=== PATIENT | female | born 1970 | race Caucasian/White ===

== ENCOUNTER 2021-12-04 13:45 | Inpatient (IN) | payer BC ==
[~2021-12-04] VITALS: Ht 167.6 cm; Wt 63.1 kg
[2021-12-04 13:50] VITALS: BP 130/83
--- NOTE | 2021-12-04 14:03 | NUR ---
Patient being evaluated by MIA at bedside.
[2021-12-04] MEDS ORDERED: LIDOCAINE/EPI MPF 1%1:200000 30 ML VIAL INJ ONE (14:20)
--- NOTE | 2021-12-04 14:22 | NUR ---
SPOKE TO FELIX FROM POISON CONTROL STATES SUPPORTIVE CARE FOR PT. DR BELLAYM MADE AWARE.
[2021-12-04] MEDS ORDERED: ONDANSETRON 4 MG/2 ML VIAL IVP ONE (14:25)
--- NOTE | 2021-12-04 14:26 | NUR ---
MD BELLAMY AT BEDSIDE FOR SUTURE REPAIR
--- NOTE | 2021-12-04 14:46 | NUR ---
51YO FEMALE PT BIBA DUE TO SI AND ON 5150 HOLD. PER [facility], PT TOOK ABOUT PILLS OF RX CLONEZAPAM AND SLIT WRIST X2 WITH KITCHEN KNIFE, AFTER ARGUEMENT W/ . PT WAS FOUND UNRESPONSIVE ON SCENE. UPON ARRIVAL, PT UNAROUSABLE TO TOUCH OR VOICE. 2X 4IN FULL THICKNESS LAC NOTED ACROSS R WRIST, NO ACTIVE BLEEDING. ROOM STRIPPED OF POTENTIAL HARMFUL ITEMS. PT CHANGED INTO GOWN AND IN VIEW. BED AT LOWEST POSITION. RSPIRATIONS EVEN AND UNLABORED. ON DIRT CONTRACTOR. HX:ANXIETY, DEPRESSION ALLERGIES: PENICILLIN
[2021-12-04 14:51] LABS: BASOPHILS % (AUTO) 0.5 % (0.0-2.0); EOSINOPHILS # (AUTO) 0.2 K/uL (0-0.4); EOSINOPHILS % (AUTO) 1.9 % (0.0-4.0); HEMATOCRIT 39.1 % (36-48); HEMOGLOBIN 13.2 g/dL (12.0-16.0); LYMPHOCYTES # (AUTO) 2.1 K/uL (2.5-16.5); LYMPHOCYTES % (AUTO) 22.9 % (20.5-51.1); MEAN CORPUSCULAR HEMOGLOBIN 29 pg (27-31); MEAN CORPUSCULAR HGB CONC 34 g/dL (33-37); MEAN CORPUSCULAR VOLUME 86.3 fL (80-94); MONOCYTES # (AUTO) 0.5 K/uL (0.8-1.0); MONOCYTES % (AUTO) 5.6 % (1.7-9.3); NEUTROPHILS # (AUTO) 6.3 K/uL (1.8-7.7); NEUTROPHILS % (AUTO) 69.1 % (42.2-75.2); PLATELET COUNT (AUTO) 296 K/uL (140-450); RED BLOOD CELL COUNT(AUTO) 4.53 MIL/uL (4.20-5.40); RED CELL DISTRIBUTION WIDTH 13.6 % (11.6-13.7); WHITE BLOOD COUNT (AUTO) 9.1 K/uL (4.8-10.8)
--- NOTE | 2021-12-04 15:12 | NUR ---
pt swabbed for covid(lory/novel). walked to lab
[2021-12-04 15:20] LABS: ALBUMIN 3.5 g/dL (3.4-5.0); ANION GAP 14.3 (8-16); ASPARTATE AMINOTRANSFERASE 14 U/L (15-37); CARBON DIOXIDE 25.7 mmol/L (21-32); CHLORIDE 106 mmol/L (98-107); CREATININE 0.7 mg/dL (0.6-1.3); GFR ARICAN-AMERICAN 114 mL/min (>90); GLUCOSE 98 mg/dL (74-106); SODIUM SERUM 142 mmol/L (136-145); TOTAL BILIRUBIN 0.3 mg/dL (0.0-1.0); UREA NITROGEN, BLOOD 15 mg/dL (7-18)
[2021-12-04 15:21] LABS: SALICYLATE < 2.8 mg/dL (2.8-20.0)
[2021-12-04] MEDS ORDERED: LISD50CA PO (15:21)
[2021-12-04] MEDS ORDERED: CLON1TAB PO (15:21)
[2021-12-04] MEDS ORDERED: VORT20TA PO (15:21)
[2021-12-04 15:23] LABS: ACETAMINOPHEN < 0.5 ug/ml (10-30)
--- NOTE | 2021-12-04 15:25 | NUR ---
XRAY AT BEDSIDE
[2021-12-04] MEDS ORDERED: NACL 0.9% 1,000 ML IV ONE (15:55)
--- NOTE | 2021-12-04 15:56 | NUR ---
CALL RECEIVED FROM PT . UPDATED ON PT STATUS AND PENDING ADMIT
--- NOTE | 2021-12-04 15:59 | NUR ---
verbal consent received from chay VALERO - for tdap vacc
[2021-12-04 16:04] LABS: APPEARANCE,URINE CLEAR (CLEAR); BILIRUBIN,URINE NEGATIVE (NEGATIVE); BLOOD, URINE TRACE-I (NEGATIVE); LEUKOCYTE ESTERASE ,URINE NEGATIVE (NEGATIVE); NITRITE, URINE NEGATIVE (NEGATIVE); UGLUCOSE NEGATIVE (NEGATIVE)
[2021-12-04 16:14] LABS: COLOR,URINE STRAW (YELLOW)
--- NOTE | 2021-12-04 16:15 | NUR ---
PT SCREAMING, CRYING, YELLING "PLEASE TAKE ME TO THE LIGHT DAD" "LET ME GO WITH YOU" "I AM TIRED OF SUFFERING". PT UNRESPONSIVE TO PAINFUL STIMULI. ORDER FOR HALDOL 5MG IM MEDICATED PER WOOD MILL SUPERVISOR. NO CHANGE IN CONDITION.
[2021-12-04] MEDS ORDERED: HALOPERIDOL IM 5 MG/ML VIAL ONE (16:18)
[2021-12-04] MEDS ORDERED: HALOPERIDOL IM 5 MG/ML VIAL IVP ONE (16:20)
[2021-12-04 16:28] LABS: BARBITURATE, URINE NEGATIVE ng/ml (NEG <=200); BENZODIAZEPINE, URINE NEGATIVE ng/mL (NEG <=200); CANNABINOID, URINE NEGATIVE ng/mL (NEG <=50); COCAINE, URINE NEGATIVE ng/mL (NEG <=300); OPIATE, URINE NEGATIVE ng/mL (NEG <=2000); PHENCYCLIDINE SCREEN,URINE NEGATIVE ng/mL (NEG <=25)
[2021-12-04] MEDS ORDERED: HYDROmorphone 1 MG/ML AMP ONE (16:28)
[2021-12-04 16:29] LABS: RBC,URINE NONE SEEN /HPF (0-5); WBC,URINE NONE SEEN /HPF (0-5)
--- NOTE | 2021-12-04 16:30 | NUR ---
Pt noted in respiratory distress, tachypneic, labored, sats in the 50's, pt dusky, pt being bagged via bvm. Dr Guerra at bedside. RT called.
[2021-12-04] MEDS ORDERED: INTUBATION KIT MC ONE (16:31)
--- NOTE | 2021-12-04 16:32 | NUR ---
ADMITTING DX: 5150 SUICIDAL IDEATION; ALOC; PANTOGRAPH II ENGRAVER'S CALLED TO BEDSIDE; Narciso GAN RCP AND Zuleyka FOLEY RCP ATTENDING
[2021-12-04] MEDS ORDERED: PROPOFOL 200 MG/20 ML VIAL IV ONE (16:38)
[2021-12-04] MEDS ORDERED: PROPOFOL 1000 MG/100 ML PREMIX 100 ML IV ONE ×3 (16:39→18:41)
--- NOTE | 2021-12-04 16:40 | NUR ---
USING A GLIDESCOPE PATIENT SUCCESSFULLY INTUBATED BY DR. ZACHERY BELLAMY; VOACL CHORD VISUALIZED; ENDOTRACHEAL TUBE #7.5 SECURED AT 24 TEETH/GUM LINE WITH AN ANCHOR FAST; ETCO2 DETECTOR YELLOW; BILATERAL LUNG GUALLPA APEX TO MID AUSCULTATED BY ERMD; CHEST XRAY TO FOLLOW
--- NOTE | 2021-12-04 16:40 | NUR ---
Pt intubated. Tube size 7.5/23 at the teeth. RT bagging pt. Tolerating well. Sinus tach on monitor, IV inserted to left wrist, 18g. Second IV inserted to right hand 18g.
--- NOTE | 2021-12-04 16:40 | NUR ---
PATIENT ADMITTED PRIOR TO INTUBATION
--- NOTE | 2021-12-04 16:42 | NUR ---
MOVED TO ER BED 10
[2021-12-04] MEDS ORDERED: ETOMIDATE 20 MG/10 ML VIAL IVP ONE (16:45)
[2021-12-04] MEDS ORDERED: ROCURONIUM 50 MG/5 ML VIAL IV ONE (16:45)
--- NOTE | 2021-12-04 16:45 | NUR ---
OG inserted, gastric contents noted, f/c inserted using sterile techinique, urine output noted draining to gravity.
[2021-12-04 16:50] VITALS: BP 174/113
--- NOTE | 2021-12-04 16:58 | NUR ---
CHEXT XRAY FOR ENDOTRACHEAL TUBE PLACEMENT; PRELIMINARY 1.6cm ABOVE ESTEBAN
--- NOTE | 2021-12-04 17:16 | NUR ---
PROPOFOL INFUSING AT 10MCG/MIN VIA LEFT WRIST #18GUAGE, PT TOLERATING WELL.
--- NOTE | 2021-12-04 17:33 | NUR ---
TRANSFERRED TO RADIOLOGY FOR CT SCAN OF HEAD; OFF VENTILAOR PLACED ON SUPPLEMENTAL OXYGEN AT 15 LPM VIA E-TANK TO HME/INLINE SUCTION CATHETER/ENDOTRACHEAL TUBE; BAG DEPRESSION EVERY SIX SECONDS; TOLERATED PROCEDURE AND TRANSFERS WELL WITHOUT COMPLICATIONS NOTED; SATURATION 100% HR 80
--- NOTE | 2021-12-04 17:50 | NUR ---
BACK FROM CT
[2021-12-04] MEDS ORDERED: HYDROmorphone 1 MG/ML AMP IVP SCH ×2 (18:28→18:29)
--- NOTE | 2021-12-04 18:30 | NUR ---
Pt transferred to ICU via BED WITH SUDHIR DEJESUS.
--- NOTE | 2021-12-04 18:54 | NUR ---
PT TRANSPORTED TO ICU 6 IN CRITICAL CONDITION. BEDSIDE REPORT GIVEN TO JEROD PEGUERO.
--- NOTE | 2021-12-04 19:00 | NUR ---
RECEIVED REPORT PT. FROM SUDHIR WILDER GAME FARM SUPERVISOR. PT. ETT TO VENT A/C VC RATE 18, FIO2 30%, TV 450, PEEP 5 AND O2 SAT 100%. IV SITE: LEFT AC 18G INFUSING NS AT 150 ML/HR, LEFT WRIST 18G RUNNING PROPOFOL DRIP 50 MCG/KG/MIN AND RIGHT HAND 18G CAPPED AND FLUSHED. OGT FLUSHED AND CLAMPED ORDERED. PEREZ CATHETER PATENT AND URINE CLEAR YELLOW COLOR. ON BILATERAL SOFT WRIST RESTRAINT. SITE WITH NO S/S OF POOR CIRCULATION AND NO S/S OF INJURY. SKIN INTACT. SKIN SUTURE WITH DRESSING TO LEFT WRIST. PT. ABLE TO RESPOND TO TACTILE STIMULI OR BY CALLING HER NAME. PROVIDED SAFE AND QUIET ENVIRONMENT. NO S/S OF PAIN. WILL CONT. TO MONITOR
[2021-12-04 20:00] VITALS: BP 136/91
--- NOTE | 2021-12-04 20:05 | NUR ---
PT. CAME TO VISIT. PROVIDED UPDATE REGARDING PT. CONDITION. NO FURTHER QUESTIONS ASKED.
[2021-12-04] MEDS ORDERED: ZOLPIDEM 5 MG TAB PO PRN (20:50)
[2021-12-04] MEDS ORDERED: ALBUTEROL SULFATE/IPRATROPIU 3 ML SOL IH PRN (20:50)
[2021-12-04] MEDS ORDERED: guaiFENesin DM 200/20 MG-10 ML 10 ML UDC PO PRN (20:50)
[2021-12-04] MEDS ORDERED: ONDANSETRON 4 MG/2 ML VIAL IM/IVP PRN (20:50)
[2021-12-04] MEDS ORDERED: DOCUSATE SODIUM 100 MG GELCAP PO PRN (20:50)
[2021-12-04] MEDS: NACL 0.9% 1,000 ML IV SCH (20:50)
[2021-12-04] MEDS ORDERED: HYDROcodone/APAP 7.5/325 MG 1 TAB PO PRN (20:50)
[2021-12-04] MEDS ORDERED: POTASSIUM CHLORIDE 10 MEQ TABER PO PRN (20:50)
[2021-12-04 21:00] VITALS: BP 144/88
--- NOTE | 2021-12-04 21:10 | NUR ---
POISON CONTROL FELIX CALLED AND ASKED PT. CURRENT CONDITION AND LABS. STATED THAT THEY WILL JUST CALL FOR FOLLOW UP WITH PT. STATUS. WILL ENDORSE TO NEXT SHIFT.
[2021-12-04 21:25] LABS: CHOL/HDL RATIO 3.3 (1-4.5); FREE T4 (FREE THYROXINE) 0.93 ng/dL (0.76-1.46); MAGNESIUM 2.2 mg/dL (1.8-2.4); PHOSPHORUS 3.9 mg/dL (2.5-4.9); THYROID STIMULATING HORMONE 1.33 uIU/mL (0.34-3.74)
[2021-12-04 21:34] LABS: PROTHROMBIN TIME 10.1 secs (10.8-13.4)
[2021-12-04 22:00] VITALS: BP 135/84
[2021-12-04 23:00] VITALS: BP 117/75
[2021-12-04] MEDS: PROPOFOL 1000 MG/100 ML PREMIX 100 ML IV PRN (23:53)
[2021-12-05] VITALS (23 sets, daily range): BP systolic 106–134; BP diastolic 58–85
[2021-12-05] MEDS: ALBUTEROL SULFATE/IPRATROPIU 3 ML SOL IH SCH ×4 (00:14→20:14)
[2021-12-05] MEDS: PROPOFOL 1000 MG/100 ML PREMIX 100 ML IV PRN ×6 (03:32→21:18)
[2021-12-05] MEDS: NACL 0.9% 1,000 ML IV SCH ×3 (05:00→20:50)
[2021-12-05 05:21] LABS: BASOPHILS % (AUTO) 0.5 % (0.0-2.0); EOSINOPHILS # (AUTO) 0.3 K/uL (0-0.4); EOSINOPHILS % (AUTO) 3.1 % (0.0-4.0); HEMATOCRIT 31.4 % (36-48); HEMOGLOBIN 10.7 g/dL (12.0-16.0); LYMPHOCYTES # (AUTO) 1.8 K/uL (2.5-16.5); LYMPHOCYTES % (AUTO) 20.6 % (20.5-51.1); MEAN CORPUSCULAR HEMOGLOBIN 29 pg (27-31); MEAN CORPUSCULAR HGB CONC 34 g/dL (33-37); MONOCYTES # (AUTO) 0.7 K/uL (0.8-1.0); MONOCYTES % (AUTO) 7.5 % (1.7-9.3); NEUTROPHILS % (AUTO) 68.3 % (42.2-75.2); PLATELET COUNT (AUTO) 248 K/uL (140-450); RED BLOOD CELL COUNT(AUTO) 3.66 MIL/uL (4.20-5.40); RED CELL DISTRIBUTION WIDTH 13.6 % (11.6-13.7); WHITE BLOOD COUNT (AUTO) 8.8 K/uL (4.8-10.8)
[2021-12-05 06:04] LABS: ANION GAP 13.4 (8-16); CARBON DIOXIDE 25.2 mmol/L (21-32); CREATININE 0.7 mg/dL (0.6-1.3); POTASSIUM 3.6 mmol/L (3.5-5.1)
--- NOTE | 2021-12-05 07:18 | NUR ---
REPORT ENDORSED TO SUDHIR DOVER FOR CONTINUITY OF CARE.
--- NOTE | 2021-12-05 07:28 | NUR ---
RECEIVED REPORT FROM NUT PICKER. ETT TO VENT A/C VC RATE 18, FIO2 30%, TV 450, PEEP 5 AND O2 SAT 100%. PT. ABLE TO RESPOND TO TACTILE STIMULI OR BY CALLING HER NAME. NO S/S OF PAIN. IV SITE: LEFT AC 18G INFUSING NS AT 150 ML/HR, LEFT WRIST 18G RUNNING PROPOFOL DRIP 60 MCG/KG/MIN AND RIGHT HAND 18G CAPPED AND FLUSHED. OGT FLUSHED AND CLAMPED ORDERED, WILL START TUBE FEEDING THIS AM. PEREZ CATHETER PATENT AND URINE CLEAR YELLOW COLOR. ON BILATERAL SOFT WRIST RESTRAINT. SITE WITH NO S/S OF POOR CIRCULATION AND NO S/S OF INJURY. SKIN INTACT. SKIN SUTURE WITH DRESSING TO LEFT WRIST. WILL CONT. TO MONITOR
[2021-12-05] MEDS: PANTOPRAZOLE 40 MG INJ VIAL IVP SCH (08:29)
--- NOTE | 2021-12-05 08:30 | NUR ---
seen and examined by Dr Mendoza, plan to possibly start weaning tomorrow.
[2021-12-05] MEDS ORDERED: PANTOPRAZOLE 40 MG TABEC PO SCH (09:00)
--- NOTE | 2021-12-05 09:17 | NUR ---
DC PLANNIN YRS OLD WAS ADMITTED FROM HOME ON 515 HOLD WITH A DX OF BENZODIAZEPINE OVERDOSE. PATIENT HAS A HX OF ANXIETY, AND DEPRESSION. PE ER NURSE DOCUMENTATION PATIENT TOOK 22 PILLS OF CLONAZEPAM . PATIENT IN ICU INTUBATED SEDATED FIO2 30%. ON PROPOFOL DRIP. CXR SHOWED NO ACUTE CARDIOPULMONARY DISEASE. CT HEAD NEGATIVE. CONSULTED WITH GARRETT. RECEIVED A CALL FROM PIA THORNE SPOKE WITH OWEN , UPDATED HER PT'S CLINICAL. PER OWEN FOR INPT PSYCH FACILITY [facility] [phone], AND DC WASTE COLLECTION DRIVER KURTIS [phone]. MELIZA TO FOLLOW Addendum: 12/08/21 at 1155 by Khadijah Shaffer RN DC PLANNING: CALLED [facility]ITT[facility] THORNE [phone] SPOKE WITH OWEN HAIDER NOTIFIED HER THAT PATIENT NEEDS INPT PSYCH. OWEN STATED TO FAX IT TO ANY PSYCH FACILITY. [facility] AND CANDY ROLLER TO FOLLOW. Addendum: 12/08/21 at 1455 by Khadijah Shaffer RN DC PLANNING: PATIENT GOT ACCEPTED AT [facility] GOING TO UNIT [address] MAHONEY ARRANGED TRANSPORT WITH [facility] CUSTOM FRAME ASSEMBLER TIME 4PM. NOTIFIED NANNETTE CHING CM TO FOLLOW
--- NOTE | 2021-12-05 09:20 | NUR ---
at bedside, updated on plan of care
--- NOTE | 2021-12-05 10:16 | NUR ---
PATIENT HAS BEEN SCREENED AND CATEGORIZED HIGH NUTRITION RISK. PATIENT WILL BE SEEN WITHIN 1-2 DAYS OF ADMISSION. 12/05/2209/26/[address]
--- NOTE | 2021-12-05 11:00 | NUR ---
TURNED AND REPOSITIONED
[2021-12-05 13:38] LABS: BARBITURATE, URINE NEGATIVE ng/ml (NEG <=200); BENZODIAZEPINE, URINE POSITIVE ng/mL (NEG <=200); CANNABINOID, URINE POSITIVE ng/mL (NEG <=50); COCAINE, URINE NEGATIVE ng/mL (NEG <=300); OPIATE, URINE NEGATIVE ng/mL (NEG <=2000); PHENCYCLIDINE SCREEN,URINE NEGATIVE ng/mL (NEG <=25)
--- NOTE | 2021-12-05 15:03 | NUR ---
ALEXIS PLANNING PT CURRENTLY INTUBATED/SEDATED. SHAUNA OUTREACHED TO MARYLU OLSEN, SPOUSE, TO GATHER COLLATERAL INFORMATION. MARYLU REPORTS THAT PATIENT RESIDES IN A TWO STORY HOME WITH FAMILY AT THE ADDRESS LISTED. MARYLU IDENTIFIES HIMSELF EMERGENCY CONTACT. MARYLU REPORTS THAT PATIENT MEETS WITH PCP DR. RUCHI DOMINGO AT [facility], LAST VISIT; 2 MONTHS AGO. PATIENT IS REPORTED TO HAVE AN APPT NEXT WEEK. MARYLU REPORTS THAT PATIENT IS MEDICATION COMPLIANT AND DENIES BARRIERS IN ACQUIRING MEDICATION NEEDED. PATIENT RECEIVES MEDICATION FROM [facility] [address] IN [place], WHEN NEEDED. PATIENT IS REPORTED TO BE INDEPENDENT IN ALL ACTIVITIES AND COMPLETES ALL ADL'S INDEPENDENTLY. MARYLU REPORTS THAT PATIENT HAS MH HX OF ANXIETY AND DEPRESSION. PATIENT IS REPORTED TO MEET WITH PSYCHIATRIST 1X EVERY 3-4 MONTHS. PT DOES NOT MEET WITH MENTAL HEALTH THERAPIST. MARYLU REPORTS THAT PATIENT HAS STRAINED FAMILY RELATIONSHIPS THAT CONTRIBUTE TO ANXIETY AND DEPRESSION TRIGGERS. MARYLU REPORTS NO PREVIOUS PSYCHIATRIC HOLDS. MARYLU REPORTS THAT PATIENT HAS A PREVIOUS SUICIDE ATTEMPT, 5 YRS AGO. MARYLU REPORTS THAT CURRENT BEHAVIOR IS OUT OF CHARACTER FOR PATIENT. MARYLU DENIES SUBSTANCE USE HX DESPITE PATIENT TESTING POSITIVE FOR AMPHETAMINE, BENZODIAZEPINES AND CANNABIS USE AT ADMISSIONS. SHAUNA TO SPEAK TO PATIENT ABOUT SUBSTANCE USE ONCE A&O. MARYLU DENIES HX OF HH, DIABETES, DIALYSIS TX. SHAUNA INQUIRED ON RESOURCES NEEDED, MARYLU DECLINED. SHAUNA TO MEET WITH PT ONCE A&O.
--- NOTE | 2021-12-05 17:30 | NUR ---
BRIAN CARE AND PEREZ CARE DONE. TURNED AND REPOSITIONED
--- NOTE | 2021-12-05 19:10 | NUR ---
REPORT GIVEN TO CONTROLS PROJECT ENGINEER RN
[2021-12-06] VITALS (28 sets, daily range): BP systolic 104–144; BP diastolic 56–84
[2021-12-06] MEDS: PROPOFOL 1000 MG/100 ML PREMIX 100 ML IV PRN ×3 (00:26→06:33)
[2021-12-06] MEDS: ALBUTEROL SULFATE/IPRATROPIU 3 ML SOL IH SCH ×4 (02:41→19:30)
[2021-12-06] MEDS: NACL 0.9% 1,000 ML IV SCH ×3 (05:00→23:46)
[2021-12-06 05:21] LABS: BASOPHILS % (AUTO) 0.4 % (0.0-2.0); EOSINOPHILS # (AUTO) 0.2 K/uL (0-0.4); EOSINOPHILS % (AUTO) 2.2 % (0.0-4.0); HEMATOCRIT 32.4 % (36-48); LYMPHOCYTES # (AUTO) 1.2 K/uL (2.5-16.5); LYMPHOCYTES % (AUTO) 13.2 % (20.5-51.1); MEAN CORPUSCULAR HEMOGLOBIN 29 pg (27-31); MEAN CORPUSCULAR HGB CONC 34 g/dL (33-37); MEAN CORPUSCULAR VOLUME 86.2 fL (80-94); MONOCYTES # (AUTO) 0.6 K/uL (0.8-1.0); MONOCYTES % (AUTO) 6.7 % (1.7-9.3); NEUTROPHILS # (AUTO) 6.9 K/uL (1.8-7.7); NEUTROPHILS % (AUTO) 77.5 % (42.2-75.2); PLATELET COUNT (AUTO) 198 K/uL (140-450); RED BLOOD CELL COUNT(AUTO) 3.75 MIL/uL (4.20-5.40); RED CELL DISTRIBUTION WIDTH 13.8 % (11.6-13.7); WHITE BLOOD COUNT (AUTO) 8.9 K/uL (4.8-10.8)
[2021-12-06 06:17] LABS: ANION GAP 14.1 (8-16); CARBON DIOXIDE 23.4 mmol/L (21-32); CREATININE 0.5 mg/dL (0.6-1.3); POTASSIUM 3.5 mmol/L (3.5-5.1)
--- NOTE | 2021-12-06 07:20 | NUR ---
SBAR REPORT RECEIVED FROM CHER PEGUERO, ALL CARES ASSUMED. PT INTUBATED, SEDATED WITH PROPOFOL DRIP. VENT SETTINGS AC/VC 18, 450, 24%, 5. PEREZ CATHETER DRAINING TO GRAVITY. BED IN LOW AND LOCKED POSITION.
--- NOTE | 2021-12-06 07:32 | NUR ---
REPORT GIVEN, ENDORSED CARE TO CAITLIN FOR CONTINUITY OF CARE.
[2021-12-06 08:08] LABS: T4 (THYROXINE) 6.9 ug/dL (4.5-12.0)
[2021-12-06] MEDS: PANTOPRAZOLE 40 MG INJ VIAL IVP SCH (09:00)
--- NOTE | 2021-12-06 09:30 | NUR ---
OF PT AT BEDSIDE, UPDATE GIVEN, ALL QUESTIONS ANSWERED AT THIS TIME.
--- NOTE | 2021-12-06 10:40 | NUR ---
PROPOFOL TITRATING DOWN FOR SEDATION VACATION, PT TOLERATING WELL. VSS.
--- NOTE | 2021-12-06 12:30 | NUR ---
RN CALLED PT IF OFF SEDATION AND READY FOR CPAP TRIAL. PT WAS PUT ON CPAP /. PT WENT APNIC AFTER 10 MINS AND WAS REVERTED BACK TO ORIGINAL VENT SETTINGS. WILL CONTINUE TO MONITOR.
--- NOTE | 2021-12-06 13:00 | NUR ---
TX AND VENT CHECK WAS NOT DONE TO RT AVAILABILITY. RT HAD AN EMERGENCY ELSE WHERE
--- NOTE | 2021-12-06 14:15 | NUR ---
PT PUT ON CPAP BY RT EWING. VSS.
--- NOTE | 2021-12-06 14:23 | NUR ---
12/06/21 RD INITIAL ASSESSMENT COMPLETED PLEASE REFER TO NUTRITION ASSESSMENT UNDER CARE ACTIVITY FOR ESTIMATED NUTRITIONAL NEEDS. 1. RECOMMEND VITAL 1.2 @ 45 ML/HR TOLERATED -FWF:200 Q4H -WITH PROPOFOL, PATIENT WILL RECEIVE 2043 KCAL, 81 G PROTEIN, AND 2076 ML VOLUME. THIS MEETS 100% OF PATIENTS ESTIMATED KCAL NEEDS AND 100% OF PROTEIN NEEDS. 2. IF EXTUBATED, RECOMMEND REGULAR DIET TOLERATED. 3. RD TO FOLLOW-UP 3-5 DAYS, MODERATE RISK REVIEWED BY KAVEH VU RD
--- NOTE | 2021-12-06 15:38 | NUR ---
PT WAS SUCCESSFULLY EXTUBATED BY RT KAYLIN AND SRT JENNIFER. PT TOLERATED EXTUBATION WELL PLACED ON 3LNC SATURATION 98%. WILL CONTINUE TO MONITOR PATIENT.
--- NOTE | 2021-12-06 15:55 | NUR ---
PT EXTUBATED BY RT, PLACED ON NASAL CANNULA 3LPM. VSS.
--- NOTE | 2021-12-06 16:33 | NUR ---
PATIENT EXPERIENCED SLIGHT WHEEZES SATURATION WAS 99%. PRN BREATHING TREATMENT WAS GIVEN TO PATIENT NO DISTRESS NOTED.
--- NOTE | 2021-12-06 17:20 | NUR ---
PT ABLE TO SWALLOW LIQUIDS WITHOUT DIFFICULTY, CLEAR LIQUID DIET ENTERED PER DR. MARTIN.
--- NOTE | 2021-12-06 19:17 | NUR ---
SBAR REPORT GIVEN TO ANSHU PEGUERO, ALL CARES ENDORSED.
--- NOTE | 2021-12-06 19:20 | NUR ---
RECEIVED REORT FROM AYAAN PEGUERO. PT IS INDICATED. SHE IS OFF PROPOFOL AND WAS EXTUBATED EARLIER TODAY. SHE IS ON A CLEAR LIQUID DIET AT THIS TIME SND SHE CONSUMED 100%. SHE HAS AN IV INFUSING IN HER LAC AT 125CC / H. AND SHE HAS A SECOND IV ACCESS IN HER RIGHT HAND. PT 'S TEMP ON ASSESSMENT WAS 99.2. EXPLAINED TO PT THJE NEED TO REMOVE HER BLANKET TO PREVENT THE TEMP FROM GOING HIGHER. SHE ASK IF SHE COULDN'T JUST TAKE TYLENOL INSTEAD. SHE WAS INFORMED THAT TYLENOL IS ORDERED FOR TEMPS >100. SHE UNDERSTOOD AND EXCEPTED.
[2021-12-06] MEDS: ACETAMINOPHEN 325 MG TAB PO PRN (23:47)
[2021-12-07] VITALS (13 sets, daily range): BP systolic 99–130; BP diastolic 54–74
--- NOTE | 2021-12-07 00:30 | NUR ---
PT C/O HEADACHE AND SHE WAS GETTING A LITTLE CONFUSED =. SHE WANTED TO SPEAK TO SOMEONE WHO SPOKE EQUATORIAL GUINEAN. WHEN SHE WAS TOLD THERE WAS NO ONE . SHE LOOIKED SUSPICIOUSLY AT ME AND SAID. i HEARD A GIRL SPEAKING EQUATORIAL GUINEAN OVER THERE. I EXPLAINED THAT THAT WAS TOÑO A MORNING NURSE AND SHE IS GONE. I ADMINISTERED TYLENOL AND AMBIEN TO THE PT BECAUSE SHE C/O OF A HEADACHE. I GAVE HER THE AMBIEN TO HELP HER SLEEP BECAUSE THE TYLENOL WASN'T SUFFICIENT TO RELEIVE HER SUFFERING.
[2021-12-07] MEDS: ALBUTEROL SULFATE/IPRATROPIU 3 ML SOL IH SCH ×2 (01:57→08:01)
[2021-12-07] MEDS: NACL 0.9% 1,000 ML IV SCH (04:50)
[2021-12-07 05:42] LABS: BASOPHILS % (AUTO) 0.5 % (0.0-2.0); EOSINOPHILS # (AUTO) 0.2 K/uL (0-0.4); EOSINOPHILS % (AUTO) 2.1 % (0.0-4.0); HEMATOCRIT 31.8 % (36-48); HEMOGLOBIN 10.6 g/dL (12.0-16.0); LYMPHOCYTES # (AUTO) 1.6 K/uL (2.5-16.5); LYMPHOCYTES % (AUTO) 15.7 % (20.5-51.1); MEAN CORPUSCULAR HEMOGLOBIN 29 pg (27-31); MEAN CORPUSCULAR HGB CONC 33 g/dL (33-37); MEAN CORPUSCULAR VOLUME 87.3 fL (80-94); MONOCYTES # (AUTO) 0.6 K/uL (0.8-1.0); MONOCYTES % (AUTO) 6.1 % (1.7-9.3); NEUTROPHILS # (AUTO) 7.5 K/uL (1.8-7.7); NEUTROPHILS % (AUTO) 75.6 % (42.2-75.2); PLATELET COUNT (AUTO) 189 K/uL (140-450); RED BLOOD CELL COUNT(AUTO) 3.64 MIL/uL (4.20-5.40); RED CELL DISTRIBUTION WIDTH 13.7 % (11.6-13.7); WHITE BLOOD COUNT (AUTO) 9.9 K/uL (4.8-10.8)
--- NOTE | 2021-12-07 05:48 | NUR ---
PT REFUSED AM CARE. SLEEEPING DIDN'T WANT TO WAKE UP
[2021-12-07 05:52] LABS: ANION GAP 12.7 (8-16); CARBON DIOXIDE 24.6 mmol/L (21-32); CREATININE 0.6 mg/dL (0.6-1.3); POTASSIUM 3.3 mmol/L (3.5-5.1)
--- NOTE | 2021-12-07 07:46 | NUR ---
Report recieved from Guerita, patient is in bed MVF running at 125, patient is alert but drowsy, afebrile, will speak to doctor regarding transfer today.
--- NOTE | 2021-12-07 08:29 | NUR ---
TITRATED PATIENT FROM 2LNC TO ROOM AIR SATURATIONS AT 98% WILL CONTINUE TO MONITOR.
[2021-12-07] MEDS: ACETAMINOPHEN 325 MG TAB PO PRN ×2 (08:46→15:30)
[2021-12-07] MEDS: PANTOPRAZOLE 40 MG INJ VIAL IVP SCH (08:46)
--- NOTE | 2021-12-07 15:18 | NUR ---
call to tele psych for medical clearance placed at 1500. Call back at [address] kee, appointment made at 0800 for 12/08/2021.
--- NOTE | 2021-12-07 18:21 | NUR ---
RECEIVED REPORT FROM ICU NURSE ADIN FOR CONTINUITY OF CARE. PT TO BE TRANSPORTED TO UNIT VIA WHEELCHAIR.
--- NOTE | 2021-12-07 18:35 | NUR ---
PT TRANSPORTED VIA WHEELCHAIR TO UNIT, PT A/OX4, AND ABLE TO AMBULATE TO BED. PT SPEAKS GUAMANIAN AND SAUDI ARABIAN. PT BREATHING EVEN, REGULAR, AND UNLABORED ON ROOM AIR. PT IS CONTINENT OF THE BOWELS, WITH PEREZ HANGING TO GRAVITY. DRESSINGS ON BILATERAL WRISTS CLEAN, DRY, AND INTACT. PT DENIES ANY PAIN OR DISTRESS AT THIS TIME. 18G IV NOTED ON RIGHT HAND.
--- NOTE | 2021-12-07 19:44 | NUR ---
ENDORSED PT TO NIGHTSHIFT NURSE YOCASTA FOR CONTINUITY OF CARE. PT IN STABLE CONDITION.
--- NOTE | 2021-12-07 19:45 | NUR ---
RECEIVED REPORT FROM DAY SHIFT NURSE. PATIENT WELL RESTED TALKING ON THE PHONE. NO SOB NOTED. ON ROOM AIR. IV ACCESS ON THE RIGHT HAND SALINE LOCK. ALL SAFETY PRECAUTIONS ARE IN PLACE. NO COMPLAINTS OF PAIN AT THIS TIME. CALL LIGHT WITHIN REACH.
[2021-12-08] VITALS: BP 114/69
--- NOTE | 2021-12-08 01:45 | NUR ---
PATIENT WITH EPISODE OF COUGHING. MEDICATED ORDERED.
--- NOTE | 2021-12-08 07:31 | NUR ---
GAVE REPORT TO MORNING SHIFT NURSE FOR CONTINUITY OF CARE.
[2021-12-08 07:45] LABS: BASOPHILS % (AUTO) 0.4 % (0.0-2.0); EOSINOPHILS # (AUTO) 0.3 K/uL (0-0.4); EOSINOPHILS % (AUTO) 3.1 % (0.0-4.0); HEMOGLOBIN 11.6 g/dL (12.0-16.0); LYMPHOCYTES # (AUTO) 1.3 K/uL (2.5-16.5); LYMPHOCYTES % (AUTO) 15.3 % (20.5-51.1); MEAN CORPUSCULAR HEMOGLOBIN 29 pg (27-31); MEAN CORPUSCULAR HGB CONC 34 g/dL (33-37); MEAN CORPUSCULAR VOLUME 85.9 fL (80-94); MONOCYTES # (AUTO) 0.4 K/uL (0.8-1.0); NEUTROPHILS # (AUTO) 6.4 K/uL (1.8-7.7); NEUTROPHILS % (AUTO) 76.2 % (42.2-75.2); PLATELET COUNT (AUTO) 221 K/uL (140-450); RED BLOOD CELL COUNT(AUTO) 3.95 MIL/uL (4.20-5.40); RED CELL DISTRIBUTION WIDTH 13.4 % (11.6-13.7); WHITE BLOOD COUNT (AUTO) 8.4 K/uL (4.8-10.8)
[2021-12-08 07:49] LABS: ANION GAP 11.6 (8-16); CARBON DIOXIDE 25.1 mmol/L (21-32); CREATININE 0.5 mg/dL (0.6-1.3); POTASSIUM 3.7 mmol/L (3.5-5.1)
[2021-12-08 08:00] VITALS: BP 140/72
--- NOTE | 2021-12-08 08:00 | NUR ---
RECEIVED IN BED ASSESSMENT COMPLETED DENIES SUICIDAL IDEATION AT THIS TIME P;FRANNY OF CARE REVIEWED AWARE TO TELE PSYCH CONSULT TODAY WILL CONTINUE TO MONITOR AND ASSESS NO DISTRESS NOTED AT THIS PRESENT TIME
[2021-12-08] MEDS: PANTOPRAZOLE 40 MG INJ VIAL IVP SCH (08:32)
--- NOTE | 2021-12-08 10:50 | NUR ---
PT HAD A TELE PSYCH CONSULT WITH DR DALEY AND NEW ORDERS TO PLACE PT ON 5150 HOLD AND TRANSFER TO [facility]PATIENT PS[facility]CH [facility]
--- NOTE | 2021-12-08 12:19 | NUR ---
[address] SITTER AT BEDSIDE NO PERSONAL ITEMS WITHIN REACH PAER TRAY FOR SAFETY FOR LUNCH GIVEN WILL CONTINUE TO MONITOR AND ASSESS FOR SAFETY
--- NOTE | 2021-12-08 12:26 | NUR ---
POLICE DEPARTMENT CONTACTED BY HEAD NECK SURGEON TO COME OUT AND WRITE 6025 HOLD SITTER IN PLACED AND PT MONNITORED CLOSELY
[2021-12-08] MEDS: ALBUTEROL SULFATE/IPRATROPIU 3 ML SOL IH SCH ×3 (13:00→19:00)
--- NOTE | 2021-12-08 13:42 | NUR ---
DISCHARGE PLANNING SW FAXED PATIENT'S INFORMATION AND CLINICAL PACKET TO THE [facility] AT TO BEGAN SEARCH FOR PSYCH PLACEMENT. CONFIRMATION WITH COMPLETE RESULT IN CHART AT ABOUT 12:55 SW ALSO FAXED PATIENT'S INFORMATION AND CLINICAL PACKET TO [facility] INTAKE DEPARTMENT AT [phone] TO INQUIRED FOR PSYCH PLACEMENT IN THEIR FACILITY. COMPLETED CONFIRMATION WAS RECEIVED AT ABOUT 13:05 SW ENDORSED PATIENT'S RN, CM AND BUSINESS EDUCATION PROFESSOR. SW/CM WILL FOLLOW UP NEEDED.
--- NOTE | 2021-12-08 14:23 | NUR ---
PT ASLEEP WILL COME BACK LATER FOR PT BREATHING TREATMENT
--- NOTE | 2021-12-08 14:23 | NUR ---
no sign of distress pt sleep comfortably. will continue to monitor.
--- NOTE | 2021-12-08 15:30 | NUR ---
[place] [id number] PT WANTS TO TAKE PT HOME ADMINISTRATION AND MENTAL RETARDATION AIDE AWARE AND AT BEDSIDE EXPLAINING THE SEVERITY OF 5150 PT NOT RATIONAL AND CONTINUES TO BE UPSET PT PERSONAL PSYCHIATRIST CALLED AND DR DALEY PSCHIATRIST CALLED BOTH MADE PT AWARE OF 5150 AND BOTH MD IN AGREEMENT OF 5150 PT CONTINUES TO DISAGREE AND REMAINS UPSET
[2021-12-08 16:00] VITALS: BP 139/81
--- NOTE | 2021-12-08 16:30 | NUR ---
[place] [facility] IN TO FILL OUT NEW 510 AT BEDSIDE AND REMINDED OF THE SEVERITY OF 5150 MADE AWARE TO PREVENT PT FROM BEING A DANGER TO HERSELF REMORT GIVEN TO CAROLINE AT [facility] AWAITING AMBULANCE TO GRAPPLER IV DISCONIUED PEREZ CATH DISCONTINUEDNO DISTRESS AT THIS TIME REMAINS WITH SITTER AT BEDSIDE
[2021-12-08 18:32] VITALS: BP 140/72
--- NOTE | 2021-12-08 19:09 | NUR ---
CARE ENDORSED TO YOCASTA RN MADE AWARE PT FOR WOODWORKING MACHINE OFFBEARER TO GO TO [facility] REPORT GIVEN TO CAROLINE PT GOING TO INTAKE UNIT 4 PT UNABLE TO SIGN DC INSTRUCTIONS ENDOSING WILL SIGN CARE ENDORSED
--- NOTE | 2021-12-08 19:10 | NUR ---
RECEIVED REPORT FROM DAY SHIFT NURSE FOR CONTINUITY OF CARE. PATIENT AWAKE ALERT VERBALLY RESPONSIVE. WELL RESTED. ABLE TO MAKE NEEDS KNOWN. ON ROOM AIR. NO COMPLAINTS OF PAIN. BREATHING REGULAR NON LABORED. CALL LIGHT ON EASY REACH. SAFETY MEASURES IN PLACE.
--- NOTE | 2021-12-08 20:40 | NUR ---
DISCHARGED PATIENT TO [facility] IN STABLE CONDITION ACCOUNTING MANAGER CONTROLLER BY EMT FILIBERTO. NO BELONGINGS LEFT.
== END 2021-12-08 20:40 | DRG 917 ==
LOC: MED 13:45 → MIC 14:28 → MTU 16:03 → MIC 17:35 → MTU 12-07 18:35
PROVIDERS: ADMIT Family Medicine; ATTEND Family Medicine
PROC: 5A1945Z Respiratory Ventilation, 24-96 Consecutive Hours (ICD-10-PCS; principal; 2021-12-04)
PROC: 0BH17EZ Insertion of Endotracheal Airway into Trachea, Via Natural or Artificial Opening (ICD-10-PCS; 2021-12-04)
PROC: 0HQDXZZ Repair Right Lower Arm Skin, External Approach (ICD-10-PCS; 2021-12-04)
PROC: 0HQDXZZ Repair Right Lower Arm Skin, External Approach (ICD-10-PCS; 2021-12-04)
DX: T42.4X2A Poisoning by benzodiazepines, intentional self-harm, initial encounter (principal); G93.41 Metabolic encephalopathy; J96.01 Acute respiratory failure with hypoxia; Z20.822 Contact with and (suspected) exposure to COVID-19; E83.51 Hypocalcemia; E78.5 Hyperlipidemia, unspecified; F32.A Depression, unspecified; F41.9 Anxiety disorder, unspecified; T14.91XA Suicide attempt, initial encounter; F15.90 Other stimulant use, unspecified, uncomplicated; Y92.89 Other specified places as the place of occurrence of the external cause
CPT/HCPCS: 31500; 36415; 36600; 51702; 70450; 71045; 80048; 80053; 80305; 81001; 81025; 82150; 82803; 83036; 83690; 83735; 83880; 84100; 84436; 84439; 84443; 84479; 84484; 85025; 85610; 85730; 87081; 87635-QW; 89220; 90471; 90715; 92526; 93005; 94002; 94003; 94640; 96361; 96374; 96375; 99291; C9113; G0480; G0482; J1170; J1630; J2001; J2405; J2704; Q0092